=== PATIENT | female | born 1940 | race Caucasian/White ===

== ENCOUNTER → 2018-09-14 | Emergency (ER) | payer OTHER ==
[~2018-09-14] VITALS: Ht 152.4 cm; Wt 68.0 kg
[~2018-09-14] MED LIST: DILTIAZEM ER60 MG; INTESTINEX680 M1 PO; KRISTALOSE20 GM PO; LISINOPRIL5 MG
== END | disposition home or self-care (01) ==
LOC: ER 18:49
DX: K56.41 Fecal impaction (principal); K52.89 Other specified noninfective gastroenteritis and colitis; J90 Pleural effusion, not elsewhere classified; R10.0 Acute abdomen